=== PATIENT | male | born 1975 | race Caucasian/White ===

== ENCOUNTER 2021-02-20 20:28 | Emergency (ER) | payer MEDICAID, SELFPAY ==
[2021-02-20 20:29] VITALS: BP 121/92; PULSE 115; RESP 16; TEMP 35.8; O2SAT 98; BMI 26.6
[2021-02-20 20:31] VITALS: BP 121/92; PULSE 115; RESP 16; TEMP 35.8; O2SAT 98
--- NOTE | 2021-02-20 20:35 | RAD_ITS ---
STUDY: X-RAY CHEST REASON FOR EXAM: Male, 45 years old. SOB TECHNIQUE: Frontal view COMPARISON: 01/31/2014 FINDINGS: The lungs are clear and expanded. There is no demonstrated pleural abnormality. Normal size heart. Normal mediastinum and adilene. Normal visualized pulmonary arteries. Normal visualized aortic arch and descending thoracic aorta. Normal visualized thoracic spine. Normal visualized ribs, clavicles, and shoulders. There is no demonstrated abnormality of the visualized soft tissue structures of the upper abdomen. RAD/Chest 1 View IMPRESSION: Normal x-ray examination of the chest. Electronically Signed: Fortino Zhu DO at 21:10 EDT Tel [phone], Service support ,
--- NOTE | 2021-02-20 22:06 | ED.VIS.DYS ---
HPI History of Present Illness Chief Complaint: Shortness of Breath Informant: patient Onset/Context/Timing Onset: Weeks (2.5) Context: gradual Timing: Continuous Worsened by: Nothing Relieved by: - (Cold air) Associated Symptoms cough, rhinorrhea, fever and yellow sputum; Negative for ear pain or sore throat Chest Pain: Positive for None Narrative Narrative: Patient presents with shortness of breath that has been getting worse over the past 2-1/2 weeks. Patient states it has been constant over this time. Patient states it is actually getting better. Patient states it is better when he goes out in cold air. Patient states he has had a cough with some yellow sputum. Patient also admits to some rhinorrhea. Patient states he had a fever of 103 at home earlier this week. Patient denies any chest pain. Patient has not been vaccinated for COVID-19. Patient states he has been exposed to COVID-19. [facility] Medical History Kidney stones Home Medications NK 02/20/21 [History Last Taken Unknown] Allergy/AdvReac Type Severity Reaction Status Date / Time Penicillins Allergy Hives Verified 02/20/21 20:31 Social History Smoking Status: Current every day smoker tobacco type: cigarettes ROS ROS ED Constitutional Constitutional ED: Reports fever(s); Denies chills Eyes Eyes: Denies blurry vision or change in vision ENT ENT ED: Reports rhinorrhea; Denies sore throat Cardiovascular Cardiovascular: Denies chest pain or palpitations Respiratory/Chest Respiratory/Chest: Reports cough and dyspnea Gastrointestinal Gastrointestinal: Denies nausea or vomiting Genitourinary Genitourinary ED: Denies dysuria or hematuria Musculoskeletal Musculoskeletal: Denies back pain or neck pain Integumentary Denies abscess or rash Neurologic Neurologic: Reports headache(s); Denies weakness Allergic/Immunologic Allergic/Immunologic ED: Denies mouth swelling or urticaria EXAM Physical Exam Const Vital Signs: 02/20/21 20:29 02/20/21 20:31 02/20/21 21:50 Temperature 96.5 F L 96.5 F L Temperature Source Temporal Temporal Pulse Rate 115 H 115 H Respiratory Rate 16 16 Respiratory Effort Normal Respiratory Pattern Normal Blood Pressure 121/92 H 121/92 H Blood Pressure Mean 101 101 Pulse Ox 98 98 Oxygen Delivery Method Room Air Room Air 02/20/21 22:33 Temperature Temperature Source Pulse Rate Respiratory Rate 16 Respiratory Effort Respiratory Pattern Blood Pressure Blood Pressure Mean Pulse Ox Oxygen Delivery Method Positive well nourished and well developed General Appearance ED: well developed HEENT Reports moist mucous membranes Neck supple and no JVD Resp normal respiratory effort and clear to auscultation bilaterally Cardio regular rate, regular rhythm and no murmurs GI normal to inspection, nondistended, normoactive bowel sounds and non-tender Palpation: soft Extremity normal to inspection General Extremety ED: Negative for edema or tenderness General Extremity: Negative for edema Neuro oriented x3, CN's II-XII intact bilaterally and no sensory deficits noted Sensorium / Orientation: alert Motor Exam: strength 5/5 throughout Psych mental status grossly normal Skin no rashes or lesions noted MDM MDM MDM Narrative Medical decision making narrative: COVID-19 rapid antigen was obtained and was negative. Portable 1 view chest x-ray was obtained. On my interpretation, lung rodriguez are clear. There is normal cardiac silhouette. Bony thorax is normal. There is no acute process noted. Radiologist also interpreted the x-ray and agrees. Patient was feeling better on reevaluation. Patient was advised that he possibly had Covid earlier in the course of the process. Patient was advised that this could be resolving and that is why his COVID-19 was negative. Patient was also advised that this could be a different viral upper respiratory infection. Patient did request to have a PCR test done. This was ordered as a send out. Patient was instructed to follow-up with his primary care physician in 5 to 7 days. Patient was instructed return if worse in any way. Patient understood and was agreeable with the plan. All questions were answered. Radiography Chest X-Ray - ED: 1 View, Read by ED Physician, Read by Radiologist and Normal Diagnostic Testing: Radiology Impression Chest X-Ray 02/20/21 20:35 IMPRESSION: Normal x-ray examination of the chest. Electronically Signed: Fortino Zhu DO at 21:10 EDT Tel [phone], Service support , Discharge Plan Triage Chief Complaint: Shortness of Breath ED Provider: Larry Eric Dx/Rx/DC Orders Clinical Impression: Viral URI Instructions: ED URI, Viral, No Abx (Adult) Prescriptions: No Action NK RF: 0 Primary Care Provider: Care Physician,No Primary Referrals: Luann Gale, [NON-STAFF] - 5-7 Days Care Physician,No Primary [Primary Care Provider] - Disposition Disposition: Home, Self Care Discharge Date/Time: 02/20/21 22:34
[2021-02-20 22:33] VITALS: RESP 16
== END 2021-02-20 22:34 | disposition home or self-care (01) ==
PROVIDERS: Emergency Provider Emergency Medicine
DX: J06.9 Acute upper respiratory infection, unspecified (principal); F17.210 Nicotine dependence, cigarettes, uncomplicated
CPT/HCPCS: 71045; 87426; 87635; 99282; U0005; U0003

== ENCOUNTER 2021-03-09 09:17 | Observation (INO) | payer MEDICAID, SELFPAY ==
[2021-03-09 09:18] VITALS: BP 121/88; PULSE 136; RESP 25; TEMP 35.3; O2SAT 99; BMI 24.3
--- NOTE | 2021-03-09 09:25 | CT_ITS ---
STUDY: CT ABDOMEN AND PELVIS WITHOUT CONTRAST REASON FOR EXAM: Male, 45 years old. Kidney Stone RADIATION DOSAGE (If Supplied By Facility): CTDIvol = ( 6.09 ) mGy, DLP = ( 292.25 ) mGycm TECHNIQUE: Transaxial images were obtained from the dome of the diaphragm to the symphysis pubis without oral contrast, and without intravenous contrast. Sagittal and coronal images were reconstructed. Individualized dose optimization techniques were used for this CT. COMPARISON: None. FINDINGS: The visualized lung bases are unremarkable. The visualized portions of the heart are within normal limits. Normal liver. Normal gallbladder and extrahepatic biliary system. Normal spleen. Normal pancreas. Normal bilateral adrenal glands. Normal right kidney. There is a 1.5 cm calculus in the left renal pelvis. Mild degree of left hydronephrosis. Normal visualized stomach. Normal small intestine. There are multiple colonic diverticula consistent with diverticulosis. The appendix is visualized and appears normal. There is diffuse atherosclerotic calcification of the abdominal aorta, without a demonstrated aneurysm. Normal inferior vena cava. Normal retroperitoneum. Normal urinary bladder. There is enlargement of the prostate gland. It measures 3.1 cm x 4.7 cm. This causes indentation at the bladder base. Normal abdominal wall. There are mild degenerative changes of the visualized lumbar spine. CT/Abdomen/Pelvis without Cont IMPRESSION: 1.5 cm calculus in the left renal pelvis. Mild degree of left hydronephrosis. Electronically Signed: Tyler Hansen MD at 10:15 EDT , Service support ,
--- NOTE | 2021-03-09 09:27 | EX.ED.DYSGE1 ---
HPI History of Present Illness Chief Complaint: Flank Pain Informant: patient Onset/Context/Timing Onset: Weeks Context: Gradual Onset Current Severity: Severe Maximum Severity: Severe Narrative Narrative: Patient present secondary to left flank pain. He has a history of kidney stones and states this pain feels similar. He has had off-and-on pain for the past 2 to 3 weeks but pain was significantly worse this morning. PFSH PFS Medical History Kidney stones Home Medications hydrocodone-acetaminophen 1 tab PO Q6H PRN 3 Days #10 tab 03/09/21 [Rx Last Taken Unknown] ketorolac 10 mg PO Q6H PRN 3 Days #14 tab 03/09/21 [Rx Last Taken Unknown] ondansetron 4 mg PO Q8H PRN #10 tab 03/09/21 [Rx Last Taken Unknown] Allergy/AdvReac Type Severity Reaction Status Date / Time Penicillins Allergy Hives Verified 03/09/21 09:18 Social History Smoking Status: Current every day smoker tobacco type: cigarettes ROS ROS ED Constitutional Constitutional ED: Denies chills or fever(s) Eyes Eyes: Denies change in vision ENT ENT ED: Denies sore throat Cardiovascular Cardiovascular: Denies chest pain Respiratory/Chest Respiratory/Chest: Denies cough or dyspnea Gastrointestinal Gastrointestinal: Reports abdominal pain; Denies diarrhea, nausea or vomiting Genitourinary Genitourinary ED: Denies dysuria Musculoskeletal Musculoskeletal: Reports back pain Integumentary Denies rash Neurologic Neurologic: Denies headache(s) or weakness Allergic/Immunologic Allergic/Immunologic ED: Denies urticaria EXAM Physical Exam Const Vital Signs: 03/09/21 09:18 03/09/21 09:35 03/09/21 11:29 Temperature 95.5 F L 95.5 F L Temperature Source Temporal Temporal Pulse Rate 136 H 136 H 82 Respiratory Rate 25 H 25 H 16 Blood Pressure 121/88 H 121/88 H 134/95 H Blood Pressure Mean 99 99 108 Pulse Ox 99 99 98 Oxygen Delivery Method Room Air Room Air Room Air Positive well nourished and well developed General Appearance ED: well developed HEENT Reports normocephalic and head/scalp atraumatic Eyes PERRL and EOMs intact bilaterally Neck supple Chest Wall inspection of chest normal and palpation of chest normal Resp normal respiratory effort and clear to auscultation bilaterally Cardio regular rhythm Rate: tachycardic GI non-tender Auscultation: hypoactive bowel sounds Palpation: soft Back/Spine General Back: CVA tenderness left Extremity normal to inspection Neuro oriented x3 and no sensory deficits noted Sensorium / Orientation: alert Motor Exam: strength 5/5 throughout Psych mental status grossly normal Skin no rashes or lesions noted MDM MDM MDM Narrative Medical decision making narrative: Patient was given morphine, Toradol, Zofran, IV fluids. Lab work, CT flank, urinalysis ordered. Lab Data Attestation: I reviewed the patient's lab results. Labs: Laboratory Results - last 24 hr 03/09/21 03/09/21 03/09/21 09:33 09:33 10:40 WBC 10.9 RBC 5.17 Hgb 15.5 Hct 45.9 MCV 88.8 MCH 30.0 MCHC 33.8 RDW Std Deviation 38.7 RDW Coeff of Jona 11.9 Plt Count 357 MPV 9.5 Immature Gran % (Auto) 0.300 Neut % (Auto) 65.1 Lymph % (Auto) 20.6 Tensas % (Auto) 9.3 Eos % (Auto) 3.6 Baso % (Auto) 1.1 H Absolute Neuts (auto) 7.1 Absolute Lymphs (auto) 2.24 Nucleated RBC % 0 Sodium 137 Potassium 4.0 Chloride 104 Carbon Dioxide 27.0 Anion Gap 6 BUN 8 Creatinine 1.11 Estim Creat Clear Calc 80.45 Est GFR (MDRD) Af Amer 91 Est GFR (MDRD) Non-Af 76 BUN/Creatinine Ratio 7.2 L Glucose 95 Calcium 9.1 Urine Color Yellow Urine Clarity Sl. Cloudy Urine pH 7.0 Ur Specific [place] 1.010 Urine Protein 30 H Urine Glucose (UA) Normal Urine Ketones 5 H Urine Occult Blood 250 H Urine Nitrite Negative Urine Bilirubin Negative Urine Urobilinogen Normal Ur Leukocyte Esterase 100 H Urine RBC 25-50 SEEN Urine WBC 10-25 SEEN Ur Squamous Epith Cells 0-5 SEEN Urine Bacteria 1+ Urine Mucus 0 SEEN Radiography Diagnostic Testing: Radiology Impression Abdomen/Pelvis CT 03/09/21 09:25 IMPRESSION: 1.5 cm calculus in the left renal pelvis. Mild degree of left hydronephrosis. Electronically Signed: Tyler Hansen MD at 10:15 EDT , Service support , Treatment and Re-Evaluation Comments:: Repeat evaluation patient resting comfortably. He states his pain is significantly improved. Lab work reviewed and unremarkable. Renal function is normal. Urinalysis shows RBCs with a smaller quantity of white blood cells. Nitrite negative. CT flank reveals a 1.5 cm calculus at the left renal pelvis. Mild hydronephrosis is present. In looking at the images I believe the stone is likely acting as a ball valve causing intermittent pain. He will be given analgesics for home and referred to urology for follow-up. Return instructions are provided. Discharge Plan Triage Chief Complaint: Flank Pain ED Provider: Dawna Salomon Dx/Rx/DC Orders Clinical Impression: Kidney stone Instructions: ED Kidney Stone w/ Colic Prescriptions: New hydrocodone-acetaminophen 5-325 mg tablet 1 tab PO Q6H PRN (Reason: pain) 3 Days Qty: 10 RF: 0 ondansetron 4 mg tablet,disintegrating 4 mg PO Q8H PRN (Reason: nausea and vomiting) Qty: 10 RF: 0 ketorolac 10 mg tablet 10 mg PO Q6H PRN (Reason: pain) 3 Days Qty: 14 RF: 0 Primary Care Provider: Care Physician,No Primary Referrals: Lyle Douglas MD [STAFF PHYSICIAN] - As soon as possible Care Physician,No Primary [Primary Care Provider] - Disposition Disposition: Home, Self Care
[2021-03-09 09:35] VITALS: BP 121/88; PULSE 136; RESP 25; TEMP 35.3; O2SAT 99
[2021-03-09] MEDS: 0.9% Normal Saline 1,000 ML 250 ML IV (09:43)
[2021-03-09] MEDS: Ketorolac 30 MG/ML Syringe IV (09:43)
[2021-03-09] MEDS: Morphine 4 MG/ML Syringe IV (09:43)
[2021-03-09] MEDS: Ondansetron 4 MG/2 ML Vial IV (09:43)
[2021-03-09 09:44] LABS: Absolute Lymphocyte Count 2.24 X10^3/uL (0.83-4.51); Absolute Neutrophil Count 7.1 X10^3/uL (2.0-7.7); Basophil# 0.12 X10^3/uL; Basophil% 1.1 % (0-1); Eosinophil# 0.39 X10^3/uL; Eosinophils% 3.6 % (0-5); Hematocrit 45.9 % (40-54); Hemoglobin 15.5 g/dL (13.0-16.5); Lymphocyte # 2.24 X10^3/ul (0.83-4.51); Lymphocyte % 20.6 % (19-41); Mean Corp Hgb Conc 33.8 g/dL (32-36); Mean Corpuscular Volume 88.8 fL (80-94); Mean Platelet Vol. 9.5 fl (6.2-12.0); Monocyte# 1.01 X10^3/uL; Monocyte% 9.3 % (0-10); NRBC Flagged by Analyzer 0 % (0-5); Neutrophil # 7.11 X10^3/uL (2.7-7.7); Neutrophil % 65.1 % (47-70); Platelet Count 357 K/mm3 (150-450); RBC Distribution Width CV 11.9 % (11.6-14.6); RBC Distribution Width SD 38.7 fl (35.1-43.9); Red Blood Count 5.17 M/mm3 (4.6-6.2); White Blood Count 10.9 K/mm3 (4.4-11.0)
[2021-03-09 10:07] LABS: Anion Gap 6 (5-15); BUN 8 mg/dL (7-18); BUN/Creat Ratio 7.2 RATIO (10-20); Calcium,Total 9.1 mg/dL (8.5-10.1); Chloride 104 mmol/L (98-107); Creatinine, Serum 1.11 mg/dL (0.70-1.30); EST Glomerular Filtration Rate 76 mL/min (>60); Est Glom Filt Rate - Afr Amer 91 mL/min (>60); Estimated Creatinine Clearance 80.45 ml/min; Glucose 95 mg/dL (74-106); Sodium Level 137 mmol/L (136-145)
[2021-03-09 10:45] LABS: Mucous, Urine 0 SEEN /hpf (<or=2+)
[2021-03-09 10:46] LABS: Color, Urine Yellow (Yellow); Glucose, Dipstick Normal (Normal); Ketone-Dipstick 5 mg/dl (Negative); Leukocyte Esterase-Dipstick 100 /ul (Negative); Nitrite-Dipstick Negative (Negative); Occult Blood-Urine 250 /ul (Negative); Protein-Dipstick 30 mg/dl (Negative); Urine Bilirubin Dipstick Negative (Negative); Urine Clarity Sl. Cloudy (Clear); Urine Urobilinogen Normal (Normal)
[2021-03-09 10:54] LABS: Red Blood Cells-Urine 25-50 SEEN /hpf (0-5); White Blood Cells 10-25 SEEN /hpf (0-5)
[2021-03-09 10:55] LABS: Bacteria 1+ /hpf (None Seen); Squamous Epithelial Cells - UA 0-5 SEEN /hpf (0-5)
[2021-03-09 11:29] VITALS: BP 134/95; PULSE 82; RESP 16; O2SAT 98
[2021-03-09 12:54] VITALS: BP 142/97; PULSE 81; RESP 18; O2SAT 99
--- NOTE | 2021-03-09 12:54 | ED.RN ---
THIS NURSE REVIEWED D/C INSTRUCTIONS WITH PT. PT VERBALIZED UNDERSTANDING OF INSTRUCTIONS. IV D/C. IV CATHETER INTACT. PT TOLERATED WELL. PT DENIES FURTHER NEEDS OR QUESTIONS AT THIS TIME
[2021-03-09 20:25] VITALS: BP 123/80; PULSE 77; RESP 18; TEMP 37.3; O2SAT 99
--- NOTE | 2021-03-09 20:26 | PCS.PANDOC ---
PANDEMIC DOCUMENTATION INITIATED: Date: 02/05/2021 Time: 190
[2021-03-09 20:30] VITALS: BMI 25.0
[2021-03-09] MEDS: Dextrose 5%-Lactated Ringers 1,000 ML 100 ML IV (23:37)
[2021-03-10] VITALS (9 sets, daily range): BP systolic 104–120; BP diastolic 71–91; PULSE 73–103; RESP 14–16; TEMP 36.3–36.7; O2SAT 94–99; BMI 25.0
--- NOTE | 2021-03-10 05:55 | EKG12_ITS ---
Test Reason : PRE-OP Blood Pressure : / mmHG Vent. Rate : 069 BPM Atrial Rate : 069 BPM P-R Int : 124 ms QRS Dur : 088 ms QT Int : 388 ms P-R-T Axes : 030 073 058 degrees QTc Int : 415 ms Normal sinus rhythm Normal ECG When compared with ECG of 13-MAY-2013 14:54, No significant change was found Confirmed by JOYCELYN DOMINGUEZ, JOSELITO ([id number]), editor greeting card FREDA AVILA ([id number]) on 03/13/2021 2:10:42 PM Referred By: DANA Confirmed By:JOSELITO HIRSCH MD
[2021-03-10] MEDS: Docusate Sodium 100 MG Capsule PO (07:56)
--- NOTE | 2021-03-10 09:05 | OP.PCM_ITS ---
Problems Associated Problem List Diagnoses (1) Kidney stone: (2) Intractable pain: (3) Hydronephrosis: Report of Operation Date of Procedure: 03/10/21 Pre-Operative Diagnosis: left renal stone with hydronephrosis Post-Operative Diagnosis: same Surgery/Procedure Performed:: cystoscopy with insertion of left ureteral stent Surgeon: Patience Doan Type of Anesthesia: MAC Specimen's removed: None Description of Procedure: The patient is a 45-year-old male who presented to the emergency room for second time in 1 day due to severe left flank pain with a large left renal stone and hydronephrosis. He was admitted for pain control now presents for left ureteral stent insertion. Informed consent was obtained. The patient was taken to the operating room and placed on the operating room table. Anesthesia monitored the head, neck, airway, IV access and vital signs throughout the case. Once anesthesia was appropriate ministered, the patient was placed into dorsal lithotomy position was prepped and draped in usual sterile fashion. A Urojet was inserted followed by the cystoscope which passed through the urethra into the urinary bladder under direct visualization. Cystoscopy revealed no evidence of mass, erythema, foreign body or ulceration. The left ureteral orifice was located in the area of the trigone. It was gently intubated with a 0.035 Glidewire which was seen alongside the stone on fluoroscopy. A 6 [place] 26 cm JJ stent was then passed over the wire with good curling in the renal pelvis as well as the urinary bladder. The patient's bladder was then emptied and he was awakened and taken to the recovery room in good condition. There were no complications during this procedure. Grafts/Implants Used: 6 x 26 JJ stent Complications none Admit VTE Documentation VTE Present on Admission: Yes VTE Mechan Device Prophylaxis: SCD's VTE Pharm Prophylaxis ordered?: No Reason prophylaxis not ordered:: Treatment Not Indicated
--- NOTE | 2021-03-10 09:08 | PCM.DC ---
Discharge Instructions Diet Discharge Diet: No restrictions Activity Discharge Activity: Return to Normal Activity May resume sexual activity in: No Restrictions Dressing / Incision Call your doctor if you observe: Fever of 101 or Higher, Inability to urinate, Inability to have a bowel movement and Uncontrolled pain Follow Up Care Please Follow Up With: Patience Doan MD When: call office to schedule stone treatment Test Results: Test results from this visit will be discussed in further detail at your follow-up appointment, if applicable. Discharge Plan Admission Admit Date/Time: 03/09/21 19:46 Attending Provider: Patience Doan Primary Care Provider: Care Physician,No Primary Instructions Patient Instructions: ED Kidney Stone w/ Colic Discharge Orders/Prescriptions Prescriptions: New hydrocodone-acetaminophen 5-325 mg tablet 1 tab PO Q6H PRN (Reason: pain) 3 Days Qty: 10 RF: 0 ondansetron 4 mg tablet,disintegrating 4 mg PO Q8H PRN (Reason: nausea and vomiting) Qty: 10 RF: 0 ketorolac 10 mg tablet 10 mg PO Q6H PRN (Reason: pain) 3 Days Qty: 14 RF: 0 Referrals / Follow Up: Lyle Douglas MD [STAFF PHYSICIAN] - As soon as possible Care Physician,No Primary [Primary Care Provider] - Disposition Disposition (needs filled in before D/C Order can be placed): Home, Self Care
[2021-03-10] MEDS: Lactated Ringers 1,000 ML 100 ML IV (09:30)
[2021-03-10] MEDS: Ciprofloxacin 400 MG/200 ML BAG 200 MG IV (09:35)
[2021-03-10] MEDS: Lidocaine Jelly 2% 20 ML Syringe (URO-JET) 20 APPLIC (09:45)
[2021-03-10] MEDS: Ketorolac 30 MG/ML Syringe IV (11:27)
[2021-03-10] MEDS: 0.9% Saline Lock 10 ML Syringe IV (11:28)
== END 2021-03-10 13:16 | disposition home or self-care (01) ==
LOC: ED 12:47 → PCU 03-10 04:00
PROVIDERS: Admitting Provider Urology; Emergency Provider Emergency Medicine; Visit Provider Urology
PROC: (CPT 52332; principal; 2021-03-10 08:30)
DX: N13.2 Hydronephrosis with renal and ureteral calculous obstruction (principal); F17.210 Nicotine dependence, cigarettes, uncomplicated
CPT/HCPCS: 00910; 52332; 74176; 76000; 80048; 81001; 85025; 87426; 93005; 96361; 96365; 96374; 96375; 96376; 99218; 99251; 99283; 99285; 99406; J7030; J7120; A4216; C1769; C2617; G0378; G0463; J0744; J2405

== ENCOUNTER 2021-03-09 17:19 | Emergency (ER) | payer MEDICAID, SELFPAY ==
[2021-03-09 17:20] VITALS: BP 110/92; PULSE 95; RESP 20; TEMP 36.7; O2SAT 100; BMI 25.0
--- NOTE | 2021-03-09 18:07 | EDS_ITS ---
HPI History of Present Illness Chief Complaint: Flank Pain Narrative Narrative: Patient presents with left-sided flank pain that has continued. He states he was seen in the emergency department earlier this morning at 9 AM, and was diagnosed with a kidney stone that is 15 mm. He denies any increase in dysuria or hematuria. No fevers or chills. His pain increased as soon as he left the emergency department. He states he went home and took a tramadol and the hydrocodone, denies any nausea or vomiting, but was told to return if his pain had increased. He has not been able to follow-up with urology or make an appointment as of yet. [facility] Medical History Kidney stones Home Medications hydrocodone-acetaminophen 1 tab PO Q6H PRN 3 Days #10 tab 03/09/21 [Rx Last Taken Unknown] ketorolac 10 mg PO Q6H PRN 3 Days #14 tab 03/09/21 [Rx Last Taken Unknown] ondansetron 4 mg PO Q8H PRN #10 tab 03/09/21 [Rx Last Taken Unknown] Allergy/AdvReac Type Severity Reaction Status Date / Time Penicillins Allergy Hives Verified 03/09/21 17:20 Social History Smoking Status: Current every day smoker tobacco type: cigarettes ROS ROS ED ROS Narrative Constitutional: No fever, no chills. HEENT: No sore throat. No neck pain. No loss of vision. No rhinorrhea. Cardiovascular: No chest pain. No palpitations. No pedal edema. Respiratory: No cough, no shortness of breath. Abdominal: No abdominal pain. No nausea. No vomiting. Genitourinary: No dysuria. No hematuria. Left flank pain, increasing. Musculoskeletal: No myalgias. No arthralgias. Neurologic: No headaches. No dizziness. No lightheadedness. Skin: No rash. No change in color. Psychiatric: No depression. No anxiety. EXAM Physical Exam Narrative Exam Narrative: Afebrile. Vital signs noted. HEENT: Normocephalic. Atraumatic. PERRL, EOMI. Neck soft and supple. No point tenderness or step off. Cardiovascular: Regular rate and rhythm. No murmurs, rubs, or gallops appreciated. Respiratory: No tachypnea. Lungs clear to auscultation bilaterally. Gastrointestinal: Abdomen soft, nontender, with normoactive bowel sounds. No rebound or guarding. Minimal left CVA tenderness to percussion. Neurological: Awake. Alert. Nonfocal, nonlateralizing. Skin: No rash. Normal color. No pallor. Musculoskeletal: No pedal edema. Full range of motion extremities. Const Vital Signs: 03/09/21 17:20 03/09/21 17:31 Temperature 98.1 F Temperature Source Temporal Pulse Rate 95 Respiratory Rate 20 H Respiratory Effort Normal Non-Labored Respiratory Pattern Normal Blood Pressure 110/92 H Blood Pressure Mean 98 Pulse Ox 100 Oxygen Delivery Method Room Air MDM MDM MDM Narrative Medical decision making narrative: I reviewed the patient's prior records. He does have a 1.5 cm stone in the left renal pelvis causing hydronephrosis. He was administered morphine and Toradol for analgesia. I discussed the patient with Dr. Patience Doan who evaluated the patient in the ED. She would like him placed on observation to take him to the OR for stent. Covid swab will be obtained. He will be placed on observation in stable condition. Discharge Plan Triage Chief Complaint: Flank Pain ED Provider: Aries Hutson Dx/Rx/DC Orders Clinical Impression: Kidney stone, Intractable pain, Hydronephrosis Prescriptions: No Action hydrocodone-acetaminophen 5-325 mg tablet 1 tab PO Q6H PRN (Reason: pain) 3 Days Qty: 10 RF: 0 ondansetron 4 mg tablet,disintegrating 4 mg PO Q8H PRN (Reason: nausea and vomiting) Qty: 10 RF: 0 ketorolac 10 mg tablet 10 mg PO Q6H PRN (Reason: pain) 3 Days Qty: 14 RF: 0 Primary Care Provider: Care Physician,No Primary Referrals: Care Physician,No Primary [Primary Care Provider] - Disposition Disposition: [facility]
[2021-03-09] MEDS: Ketorolac 30 MG/ML Syringe IV (18:25)
[2021-03-09] MEDS: Morphine 4 MG/ML Syringe IV (18:25)
[2021-03-09 19:43] VITALS: BP 126/83; PULSE 77; RESP 18; TEMP 36.7; O2SAT 99
--- NOTE | 2021-03-09 19:48 | PCM.HP.STD ---
HPI - General HPI Narrative AURY MUIR, is a 45 M who presents to the emergency department for a second time today with severe uncontrolled left-sided flank and abdominal pain. He has a past medical history of kidney stones requiring surgical intervention with a stent in the past. He reports that he has had this pain intermittently for the last few months but it has been worse the last 2 days. He denies fever or chills, but reports he has been having sweating with his pain. No nausea or vomiting. No hematuria, dysuria or evidence of urinary tract infection. He denies any other medical problems or surgeries. Denies any home medications. [facility] Medical History Kidney stones Home Medications hydrocodone-acetaminophen 1 tab PO Q6H PRN 3 Days #10 tab 03/09/21 [Rx Last Taken Unknown] ketorolac 10 mg PO Q6H PRN 3 Days #14 tab 03/09/21 [Rx Last Taken Unknown] ondansetron 4 mg PO Q8H PRN #10 tab 03/09/21 [Rx Last Taken Unknown] Allergy/AdvReac Type Severity Reaction Status Date / Time Penicillins Allergy Hives Verified 03/09/21 17:20 Social History Smoking Status: Current every day smoker tobacco type: cigarettes ROS Constitutional Constitutional: Denies body ache(s), chills or fever(s) Cardiovascular Cardiovascular: Reports abdominal pain; Denies abdominal bloating or dyspnea Respiratory/Chest Respiratory/Chest: Denies chest congestion, chest tightness or dyspnea Gastrointestinal Gastrointestinal: Reports abdominal pain; Denies nausea or vomiting Genitourinary Genitourinary: Reports abdominal discomfort and low back pain; Denies dysuria, hematuria, urinary frequency or urinary urgency Vital Signs Vital Signs Vital Signs: 03/09/21 17:20 03/09/21 17:31 03/09/21 19:43 Temperature 98.1 F 98.1 F Temperature Source Temporal Temporal Pulse Rate 95 77 Respiratory Rate 20 H 18 Respiratory Effort Normal Non-Labored Respiratory Pattern Normal Blood Pressure 110/92 H 126/83 H Blood Pressure Mean 98 97 Pulse Ox 100 99 Oxygen Delivery Method Room Air Room Air Weight Weight: 74.843 kg Body Mass Index (BMI) 25.0 Physical Exam Const alert, oriented x3 and no apparent distress HEENT normocephalic and head/scalp atraumatic Head and Scalp: normal to inspection Nose: external nose normal External Ear: external ears normal Eyes General Eye: normal appearance of both eyes Neck supple General: trachea midline Chest inspection of chest normal Chest: symmetrical chest wall rise Resp normal respiratory effort, normal air movement, no retractions and no use of accessory muscles Cardio regular rate and regular rhythm GI soft to palpation, non-tender and non-distended Back/Spine General Back: CVA tenderness left Neuro oriented x3, CN's II-XII intact bilaterally and moves all extremities Assessment & Plan Assessment/Plan (1) Kidney stone: (2) Hydronephrosis: (3) Intractable pain: PLAN: Admit to observation for pain control To the operating room tomorrow morning for cystoscopy with left ureteral stent insertion Informed consent obtained
== END 2021-03-09 19:56 | disposition short-term general hospital (02) ==
PROVIDERS: Emergency Provider Emergency Medicine
DX: N13.2 Hydronephrosis with renal and ureteral calculous obstruction (principal); F17.210 Nicotine dependence, cigarettes, uncomplicated
CPT/HCPCS: 87426; 96365; 96375; 99285; A4216

== ENCOUNTER 2021-03-27 09:01 | Day surgery (SDC) | payer MEDICAID, SELFPAY ==
[2021-03-27] VITALS (7 sets, daily range): BP systolic 119–134; BP diastolic 55–97; PULSE 82–106; RESP 16–20; TEMP 36.1–36.3; O2SAT 95–98; BMI 23.6
[2021-03-27] MEDS: Lactated Ringers 1,000 ML 100 ML IV ×2 (09:30→12:49)
--- NOTE | 2021-03-27 09:35 | HP.PCM_ITS ---
HPI - General HPI Narrative AURY MUIR, is a 45 M who presents for definitive management of left renal stone. Already with left ureteral stent. Informed consent obtained. [facility] Medical History (Updated 03/27/21 @ 09:[address] Patience Doan MD) Alcohol use Back pain Chronic cough Injury of back Kidney stones Left renal stone Smoker Trigger finger of thumb Home Medications NK 03/19/21 [History Last Taken Unknown] Allergy/AdvReac Type Severity Reaction Status Date / Time Penicillins Allergy Hives Verified 03/19/21 08:12 Surgical History History of cystoscopy Social History Smoking Status: Current every day smoker tobacco type: cigarettes ROS Constitutional Constitutional: Denies chills, fatigue or fever(s) Eyes Eyes: Reports systems reviewed and no addt'l complaints, except as documented ENT HEENT: Reports systems reviewed and no addt'l complaints, except as documented Cardiovascular Cardiovascular: Denies abdominal pain, chest pain, diaphoresis or dyspnea Respiratory/Chest Respiratory/Chest: Denies change in mental status, cough or dyspnea Gastrointestinal Gastrointestinal: Denies abdominal pain, anorexia, cramping, nausea or vomiting Genitourinary Genitourinary: Reports low back pain and urinary urgency; Denies burning urination or difficulty urinating Musculoskeletal Musculoskeletal: Reports systems reviewed and no addt'l complaints, except as documented Integumentary Integumentary: Reports systems reviewed and no addt'l complaints, except as documented Neurologic Neurologic: Reports systems reviewed and no addt'l complaints, except as doc umented Psychiatric Psychiatric: Reports systems reviewed and no addt'l complaints, except as documented Physical Exam Const alert, oriented x3 and no apparent distress HEENT normocephalic, head/scalp atraumatic, hearing grossly normal bilaterally, ex ternal ears normal, external nose normal and moist oral mucous membranes Eyes conjunctivae normal General Eye: normal appearance of both eyes Neck supple General: trachea midline Lymph Lymphatic: no lymphedema noted Chest inspection of chest normal Chest: symmetrical chest wall rise Resp normal respiratory effort, normal air movement, no retractions and no use of accessory muscles Cardio regular rate and regular rhythm GI soft to palpation, non-tender and non-distended external exam normal Back/Spine General Back: CVA tenderness left Extremity normal to inspection Skin no rashes or lesions noted, no wounds, skin turgor normal, no jaundice, no petechiae and no mottling Neuro oriented x3, CN's II-XII intact bilaterally and moves all extremities Psych mental status grossly normal, thought process normal, cooperative and affect normal Assessment & Plan Assessment/Plan (1) Left renal stone: PLAN: proceed with left extracorporeal shockwave lithotripsy. informed consent obtained negative urine culture.
[2021-03-27] MEDS: Ciprofloxacin 400 MG/200 ML BAG 200 MG IV (09:39)
--- NOTE | 2021-03-27 09:39 | PCM.OPRPT ---
Problems Associated Problem List Diagnoses (1) Left renal stone: Report of Operation Date of Procedure: 03/27/21 Pre-Operative Diagnosis: left renal stone Post-Operative Diagnosis: same Surgery/Procedure Performed:: left renal extracorporeal shockwave lithotripsy Surgeon: Patience Doan Type of Anesthesia: General Description of Procedure: The patient is a 45-year-old male with an indwelling left ureteral stent placed for a large left renal calculus with hydronephrosis. He now presents for definitive management of his stone. Informed consent was obtained. The patient was taken to the operating room and placed on the lithotripsy table. Anesthesia monitored the head, neck, airway, IV access and vital signs throughout the case. Once anesthesia was appropriately administered, the patient was aligned with a lithotripter. 3000 shocks were applied to the well visible stone. At the conclusion of the case the stone did appear to be fragmented. The patient was then awakened and taken to the recovery room in good condition. There were no complications during this procedure. Grafts/Implants Used: none Complications none Admit VTE Documentation VTE Present on Admission: Yes VTE Mechan Device Prophylaxis: SCD's VTE Pharm Prophylaxis ordered?: No Reason prophylaxis not ordered:: Treatment Not Indicated
--- NOTE | 2021-03-27 09:40 | PCM.DC ---
Discharge Instructions Diet Discharge Diet: No restrictions Activity Discharge Activity: Return to Normal Activity and May Shower May resume sexual activity in: No Restrictions Dressing / Incision Call your doctor if you observe: Fever of 101 or Higher, Inability to urinate, Inability to have a bowel movement and Uncontrolled pain Follow Up Care Please Follow Up With: Patience Doan MD When: call office for instructions Test Results: Test results from this visit will be discussed in further detail at your follow-up appointment, if applicable. Discharge Plan Admission Attending Provider: Patience Doan Primary Care Provider: Manuel PhysicianAnayeli Primary Discharge Orders/Prescriptions Prescriptions: New phenazopyridine [Pyridium] 200 MG tablet 200 mg PO TID PRN PRN (Reason: Bladder Spasms) 7 Days Qty: 30 RF: 0 sulfamethoxazole-trimethoprim [sulfamethoxazole-trimethoprim] 1 TABLET tablet 1 tab PO BID 3 Days Qty: 6 RF: 0 oxycodone-acetaminophen [oxycodone-acetaminophen] 1 TABLET tablet 2 tab PO Q8H PRN PRN (Reason: Pain) 7 Days Qty: 20 RF: 0 Referrals / Follow Up: Care PhysicianAnayeli Primary [Primary Care Provider] - Disposition Disposition (needs filled in before D/C Order can be placed): Home, Self Care
== END 2021-03-27 14:27 | disposition home or self-care (01) ==
LOC: SDC 09:04 → AC 09:04
PROVIDERS: Referring Provider Urology; Visit Provider Urology
PROC: (CPT 50590; principal; 2021-03-27 10:00)
DX: N13.2 Hydronephrosis with renal and ureteral calculous obstruction (principal); Z20.822 Contact with and (suspected) exposure to COVID-19; F17.210 Nicotine dependence, cigarettes, uncomplicated
CPT/HCPCS: 00873; 50590; 87426; J7120; J0744; J2405

== ENCOUNTER → 2021-04-19 16:45 | Outpatient (CLI) | payer MEDICAID, SELFPAY ==
--- NOTE | 2021-04-19 16:46 | RAD_ITS ---
STUDY: X-RAY - ABDOMEN/PELVIS REASON FOR EXAM: Male, 45 years old. Stones. TECHNIQUE: AP supine and decubitus views of the abdomen and pelvis. COMPARISON: CT of the abdomen and pelvis, 03/09/2021. FINDINGS: Normal visualized lung bases. There is an unremarkable bowel gas pattern. There is no demonstrated free abdominal air. The visualized liver, spleen and kidneys are grossly normal in size and morphology. There is no left ureteral stent. The large calcification seen in the left renal pelvis on the prior CT is no longer present. The right kidney is obscured by overlying colon. Normal soft tissue structures. There are mild degenerative changes of the visualized lumbar spine. RAD/Abdomen Single View IMPRESSION: Left ureteral stent with absence of the left renal pelvic calculus seen on CT. Electronically Signed: Gregorio Xie DO at 16:48 EDT Tel [phone], Service support ,
== END ==
PROVIDERS: Referring Provider Urology; Visit Provider Urology
DX: N20.0 Calculus of kidney (principal)
CPT/HCPCS: 74018

== ENCOUNTER 2021-05-08 06:37 | Day surgery (SDC) | payer MEDICAID, SELFPAY ==
[2021-05-08] VITALS (7 sets, daily range): BP systolic 107–124; BP diastolic 81–90; PULSE 85–104; RESP 16; TEMP 36.1–36.7; O2SAT 97–100; BMI 23.2
[2021-05-08] MEDS: Lactated Ringers 1,000 ML 15 ML IV (06:50)
--- NOTE | 2021-05-08 08:00 | HP.PCM_ITS ---
HPI - General HPI Narrative AURY MUIR, is a 45 M who presents for cystoscopy and left ureteral stent removal following extracorporal shockwave lithotripsy with no stone visible on KUB. No complaints of pain except for stent discomfort with voiding. Minimal hematuria yesterday otherwise doing well. Pyridium helps with his spasms. No new urologic issues. He is aware that he will follow-up with a male urologist or he can contact my office for a 24-hour urinalysis. PFSH Medical History Alcohol use Anemia Anxiety Arthritis Back pain Broken tooth Chronic cough Depression Injury of back Kidney stones Left renal stone Marijuana use Restless legs Smoker Trigger finger of thumb Home Medications acetaminophen [Tylenol] 650 mg PO Q4H PRN 05/01/21 [History Last Taken Unknown] Allergy/AdvReac Type Severity Reaction Status Date / Time Penicillins Allergy Hives Verified 05/08/21 07:04 Surgical History History of cystoscopy Hx of cystoscopy Social History Smoking Status: Current every day smoker tobacco type: cigarettes ROS ROS Narrative No fever, chills, nausea, vomiting, dysuria. No abdominal pain. No back pain. No issues with voiding or bowel movements. No new issues. Vital Signs Vital Signs Vital Signs: 05/08/21 07:05 Temperature 98.1 F Temperature Source Temporal Pulse Rate 104 H Respiratory Rate 16 Respiratory Pattern Normal Blood Pressure 124/81 H Blood Pressure Mean 95 Blood Pressure Source Monitor Blood Pressure Position Semi-Fowlers Blood Pressure Location Left Arm Pulse Ox 98 Oxygen Delivery Method Room Air Weight Weight: 69.4 kg Body Mass Index (BMI) 23.2 Physical Exam Narrative Alert and oriented x3. Head and neck exam is within normal limits. No issues with respiratory effort, no use of accessory muscles. Trachea is midline, neck is supple. CVA tenderness. Moves all extremities. Normal affect. All else within normal limits. Results Lab / Micro Data Micro: Microbiology 05/08/21 07:00 Interface Orders SARS-CoV-2 Antigen (Rapid) - Final Assessment & Plan Assessment/Plan (1) Left renal stone: PLAN: Proceed with cystoscopy and removal of left ureteral stent. In formed consent was obtained.
[2021-05-08] MEDS: Lubricating Jelly 60 GM Tube 30 GM (08:10)
[2021-05-08] MEDS: Lidocaine Jelly 2% 20 ML Syringe (URO-JET) 20 APPLIC (08:10)
--- NOTE | 2021-05-08 08:11 | PCM.DC ---
Discharge Instructions Diet Discharge Diet: No restrictions Activity Discharge Activity: Return to Normal Activity May resume sexual activity in: No Restrictions Dressing / Incision Call your doctor if you observe: Fever of 101 or Higher, Inability to urinate, Inability to have a bowel movement and Uncontrolled pain Follow Up Care When: either general urologist or ok to see me for 24hr UA follow up Test Results: Test results from this visit will be discussed in further detail at your follow-up appointment, if applicable. Discharge Plan Admission Attending Provider: Patience Doan Primary Care Provider: Care Physician,Anayeli Primary Discharge Orders/Prescriptions Prescriptions: Continued acetaminophen [Tylenol] 325 mg Tablet 650 mg PO Q4H PRN (Reason: Pain) RF: 0 Referrals / Follow Up: Care Physician,No Primary [Primary Care Provider] - Disposition Disposition (needs filled in before D/C Order can be placed): Home, Self Care
--- NOTE | 2021-05-08 08:12 | OP.PCM_ITS ---
Problems Associated Problem List Diagnoses (1) Left renal stone: Report of Operation Date of Procedure: 05/08/21 Pre-Operative Diagnosis: Left renal calculus Post-Operative Diagnosis: Same Surgery/Procedure Performed:: Cystoscopy with removal of left ureteral stent Surgeon: Patience Doan Type of Anesthesia: MAC and Topical Anesth Description of Procedure: The patient is a 45-year-old male who underwent a left extrarenal corporal shockwave lithotripsy for a renal calculus after he had a left ureteral stent inserted. He has subsequently passed his stone and now presents for removal of his stent. Informed consent was obtained. The patient was taken to the operating room and placed on the operating room table. Anesthesia monitored the head, neck, airway, IV access and vital signs throughout the case. Once anesthesia was appropriate ministered the patient was placed in dorsal lithotomy position and was prepped and draped in usual sterile fashion. A lidocaine jet was inserted through the urethral meatus into the urethra. The cystoscope was then inserted through the urethra under direct visualization into the urinary bladder. The left ureteral stent was clearly observed. It was grasped and removed without difficulty. The procedure was concluded. The patient was awakened and taken to the recovery room in good cond ition. There were no complications during this procedure. Grafts/Implants Used: None Complications None Admit VTE Documentation VTE Present on Admission: No VTE Mechan Device Prophylaxis: None Reason prophylaxis not ordered:: Treatment Not Indicated
== END 2021-05-08 09:25 | disposition home or self-care (01) ==
LOC: SDC 06:41 → AC 06:41
PROVIDERS: Referring Provider Urology; Visit Provider Urology
PROC: (CPT 52332; principal; 2021-05-08 07:50)
DX: N20.0 Calculus of kidney (principal); M19.90 Unspecified osteoarthritis, unspecified site; F17.210 Nicotine dependence, cigarettes, uncomplicated
CPT/HCPCS: 00910; 52310; 87426; J7120; J2405